=== PATIENT | male | born 1975 | race American Indian/Alaskan Native ===

== ENCOUNTER 2018-12-22 11:32 | Emergency (ER) | payer OTHER ==
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
--- NOTE | 2018-12-22 12:30 | XRay Report ---
ROUTINE CHEST, TWO VIEWS: HISTORY: Pain. The trachea, heart, mediastinal contour, lung bajwa and bony thorax are unremarkable. IMPRESSION: Unremarkable chest x-ray.
--- NOTE | 2018-12-22 12:30 | XRay Report ---
CERVICAL SPINE, 3 views: History: Neck pain. Findings: The vertebral bodies, disk spaces, posterior elements and prevertebral soft tissues are unremarkable. The dens is intact. No acute fracture or malalignment is identified. Impression: 1. No evidence for acute injury to the cervical spine.
--- NOTE | 2018-12-22 12:30 | XRay Report ---
LUMBOSACRAL SPINE, 3 VIEWS: History: Back pain Findings: The vertebral bodies, disk spaces and posterior elements are intact. No compression deformity or malalignment. The SI joints are symmetric and unremarkable. Impression: 1. No evidence for acute injury to the lumbar spine.
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
[2018-12-22 14:54] VITALS: BP 123/69
== END 2018-12-22 14:57 | disposition home or self-care (01) ==
LOC: ED 11:32
DX: M54.89 Other dorsalgia (principal); M54.5 Low back pain; V89.2XXA Person injured in unspecified motor-vehicle accident, traffic, initial encounter; Y93.89 Activity, other specified; Y99.8 Other external cause status; Y92.410 Unspecified street and highway as the place of occurrence of the external cause
CPT/HCPCS: 71046; 72040; 72100; 99283